=== PATIENT | female | born 1965 | race Caucasian/White ===

== ENCOUNTER 2019-10-31 09:11 | Outpatient (CLI) | payer OTHER ==
--- NOTE | 2019-10-31 09:50 | RAD ---
XR Foot Rt 3 View STANDARD HISTORY: Puncture wound. Cellulitis right foot involving the great toe FINDINGS: No fracture or dislocation is identified. No bony destruction or periosteal reaction is seen. IMPRESSION: No evidence of right foot osteomyelitis.
== END 2019-10-31 09:12 | disposition home or self-care (01) ==
LOC: SCSRAD 09:11
PROVIDERS: ATTEND Family Medicine
DX: S91.331A Puncture wound without foreign body, right foot, initial encounter (principal); L03.115 Cellulitis of right lower limb